=== PATIENT | male | born 1965 | race Caucasian/White ===

== ENCOUNTER 2018-09-15 08:47 | Emergency (ER) | payer MEDICAID, OTHER ==
[~2018-09-15] VITALS: Ht 170.2 cm; Wt 68.0 kg
[~2018-09-15 08:47] MED LIST: AFRIN NS; ASPI81TA52 PO; CEPH-571 PO; CYCL-1 PO; IBUP-1986 PO; NEOM10SO7 OT; PRED10TA PO
[2018-09-15 08:52] VITALS: BP 150/90
[2018-09-15] MEDS ORDERED: IBUP-1984 PO (11:00)
== END 2018-09-15 11:07 | disposition home or self-care (01) ==
LOC: ER 08:48
DX: S93.402A Sprain of unspecified ligament of left ankle, initial encounter (principal); I10 Essential (primary) hypertension; K21.9 Gastro-esophageal reflux disease without esophagitis; G89.29 Other chronic pain; F17.200 Nicotine dependence, unspecified, uncomplicated; F12.90 Cannabis use, unspecified, uncomplicated; Z59.0 Homelessness; Z88.5 Allergy status to narcotic agent; Z79.82 Long term (current) use of aspirin; Z79.2 Long term (current) use of antibiotics; Z79.899 Other long term (current) drug therapy; W13.8XXA Fall from, out of or through other building or structure, initial encounter; Y93.39 Activity, other involving climbing, rappelling and jumping off; Y92.89 Other specified places as the place of occurrence of the external cause; Y99.8 Other external cause status
CPT/HCPCS: 73610; 73630; 99284

== ENCOUNTER 2019-09-12 13:16 | Emergency (ER) | payer SELFPAY ==
[~2019-09-12] VITALS: Ht 167.6 cm; Wt 75.3 kg
[2019-09-12] MEDS ORDERED: ketorolac trometh. 30mg/ml inj. IM ONE (14:10)
[2019-09-12] MEDS ORDERED: CYCL-1 PO (14:48)
[2019-09-12] MEDS ORDERED: IBUP-1984 PO (14:48)
[2019-09-12 14:58] VITALS: BP 147/82
== END 2019-09-12 15:00 | disposition home or self-care (01) ==
LOC: ER 13:17
DX: G89.29 Other chronic pain (principal); M54.5 Low back pain; I10 Essential (primary) hypertension; K21.9 Gastro-esophageal reflux disease without esophagitis; F12.90 Cannabis use, unspecified, uncomplicated; Z87.442 Personal history of urinary calculi; Z59.0 Homelessness; Z88.5 Allergy status to narcotic agent; Z79.82 Long term (current) use of aspirin; Z79.2 Long term (current) use of antibiotics; Z79.899 Other long term (current) drug therapy
CPT/HCPCS: 96372; 99283; J1885

== ENCOUNTER 2020-06-12 09:09 | Emergency (ER) | payer MEDICAID, OTHER ==
[~2020-06-12] VITALS: Ht 170.2 cm; Wt 75.3 kg
[2020-06-12 09:20] VITALS: BP 149/89
[2020-06-12] MEDS ORDERED: LIDOcaine 5% patch TP STA (10:06)
[2020-06-12] MEDS ORDERED: ondansetron 4mg rapidly disintigrating tab PO ONE (10:10)
[2020-06-12] MEDS ORDERED: ketorolac trometh. 30mg/ml inj. IM ONE (10:10)
[2020-06-12] MEDS ORDERED: BACL-11 PO (10:10)
[2020-06-12] MEDS ORDERED: cyclobenzaprine 10mg tablet PO ONE (10:10)
[2020-06-12] MEDS: HYDROcodone/acetaminophen 5mg/325mg tablet PO ONE ×2 (10:29→10:30)
[2020-06-12 11:09] LABS: CLARITY,URINE CLEAR (Clear); COLOR,URINE YELLOW (Yellow); GLUCOSE, URINE NEGATIVE (Neg); KETONES,URINE NEGATIVE (Neg); LEUKOCYTE ESTERASE ,URINE NEGATIVE (Neg); NITRITES, URINE NEGATIVE (Neg); OCCULT BLOOD,URINE NEGATIVE (Neg); PROTEIN,URINE NEGATIVE (Neg); UA COLLECTION TYPE CLN CATCH MIDSTREAM; UROBILINOGEN,URINE 0.2 E.U/dL (0.2-1.0)
== END 2020-06-12 11:53 | disposition home or self-care (01) ==
LOC: ER 09:09
DX: S33.5XXA Sprain of ligaments of lumbar spine, initial encounter (principal); M54.16 Radiculopathy, lumbar region; G89.29 Other chronic pain; M62.830 Muscle spasm of back; I10 Essential (primary) hypertension; K21.9 Gastro-esophageal reflux disease without esophagitis; F12.90 Cannabis use, unspecified, uncomplicated; M25.552 Pain in left hip; M25.551 Pain in right hip; Z59.0 Homelessness; Z86.19 Personal history of other infectious and parasitic diseases; Z88.5 Allergy status to narcotic agent; Z79.82 Long term (current) use of aspirin; Z79.899 Other long term (current) drug therapy; X58.XXXA Exposure to other specified factors, initial encounter; Y93.89 Activity, other specified; Y92.89 Other specified places as the place of occurrence of the external cause; Y99.8 Other external cause status
CPT/HCPCS: 81003; 96372; 99284; J1885

== ENCOUNTER 2021-05-18 18:37 | Emergency (ER) | payer MEDICAID ==
[~2021-05-18] VITALS: Ht 167.6 cm; Wt 80.0 kg
[~2021-05-18 18:37] MED LIST changes: +BACL-11 PO
[2021-05-18 18:54] VITALS: BP 116/74
--- NOTE | 2021-05-18 19:25 | NUR ---
PT TO ROOM, ASSUMED CARE.
[2021-05-18] MEDS ORDERED: ketorolac tromethamine 15mg/ml inj. IM ONE (19:35)
[2021-05-18 20:11] LABS: BASOPHILS % (AUTO) 0.3 % (0-1); EOSINOPHILS # (AUTO) 0.1 X10'3 (0-0.9); HEMATOCRIT 42.6 % (42.0-52.0); HEMOGLOBIN 14.5 g/dl (14.0-17.9); LYMPHOCYTES # (AUTO) 1.9 X10'3 (1.1-4.8); LYMPHOCYTES % (AUTO) 19.7 % (21-51); MEAN CORPUSCULAR HEMOGLOBIN 31.5 PG (27.0-31.0); MEAN CORPUSCULAR VOLUME 92.8 FL (78-98); MEAN PLATELET VOLUME 8.7 FL (7.4-10.4); NEUTROPHILS # (AUTO) 6.8 X10'3 (1.8-7.7); PLATELET COUNT 180 X10'3 (140-440); RED BLOOD COUNT 4.59 X10'6 (4.70-6.10); RED CELL DISTRIBUTION WIDTH 13.1 % (11.5-14.5); WHITE BLOOD COUNT 9.9 X10'3 (4.5-11.0)
[2021-05-18 20:23] LABS: ALANINE AMINOTRANSFERASE 133 U/L (12-78); ALBUMIN 3.4 G/DL (3.4-5.0); ALBUMIN/GLOBULIN RATIO 0.8 (1.1-1.5); ALKALINE PHOSPHATASE 124 IU/L (46-116); ANION GAP 6 (8-16); ASPARTATE AMINO TRANSFERASE 53 U/L (10-37); BILIRUBIN,TOTAL 0.6 MG/DL (0.1-1.0); BLOOD UREA NITROGEN 17 MG/DL (7-18); BUN/CREATININE RATIO 15.2 (5.4-32.0); C-REACTIVE PROTEIN 2.33 MG/DL (0.0-0.5); CALCIUM 9.2 MG/DL (8.5-10.1); CHLORIDE 102 MMOL/L (99-107); CREATININE 1.12 MG/DL (0.60-1.10); GLUCOSE 120 MG/DL (70-104); POTASSIUM 3.9 MMOL/L (3.5-5.1); SODIUM 137 MMOL/L (135-145); TOTAL CARBON DIOXIDE 29.2 MMOL/L (24-32); TOTAL PROTEIN 7.9 G/DL (6.4-8.2); eGFR 68 ML/MIN
[2021-05-18] MEDS ORDERED: CEPH-585 PO (21:29)
== END 2021-05-18 21:36 | disposition home or self-care (01) ==
LOC: ER 18:37
DX: L03.116 Cellulitis of left lower limb (principal); I10 Essential (primary) hypertension; K21.9 Gastro-esophageal reflux disease without esophagitis; G89.29 Other chronic pain; Z87.442 Personal history of urinary calculi; F12.90 Cannabis use, unspecified, uncomplicated; Z59.0 Homelessness; Z86.19 Personal history of other infectious and parasitic diseases; Z88.5 Allergy status to narcotic agent; Z79.82 Long term (current) use of aspirin; Z79.899 Other long term (current) drug therapy
CPT/HCPCS: 36415; 80053; 85025; 85651; 86140; 96372; 99283; J1885

== ENCOUNTER 2021-08-04 20:20 | Emergency (ER) | payer MEDICAID ==
[~2021-08-04] VITALS: Ht 170.2 cm; Wt 79.5 kg
[2021-08-04 20:56] VITALS: BP 124/95
[2021-08-04] MEDS ORDERED: ALBU6.7H9 INH (21:35)
[2021-08-04] MEDS ORDERED: PRED20TA PO (21:35)
== END 2021-08-04 22:41 | disposition home or self-care (01) ==
LOC: ER 20:21
DX: U07.1 COVID-19 (principal); J06.9 Acute upper respiratory infection, unspecified; R06.2 Wheezing; R06.02 Shortness of breath; R50.9 Fever, unspecified; R05 Cough; R53.1 Weakness; I10 Essential (primary) hypertension; K21.9 Gastro-esophageal reflux disease without esophagitis; G89.29 Other chronic pain; F12.90 Cannabis use, unspecified, uncomplicated; Z86.19 Personal history of other infectious and parasitic diseases; Z87.442 Personal history of urinary calculi; Z59.0 Homelessness; Z88.5 Allergy status to narcotic agent; Z79.82 Long term (current) use of aspirin; Z79.2 Long term (current) use of antibiotics; Z79.899 Other long term (current) drug therapy
CPT/HCPCS: 36415; 71045; 99284; U0003; U0005

== ENCOUNTER 2021-09-04 19:24 | Emergency (ER) | payer MEDICAID ==
[~2021-09-04] VITALS: Ht 170.2 cm; Wt 78.6 kg
[~2021-09-04 19:24] MED LIST changes: +ALBU6.7H9 INH
[2021-09-04 19:37] VITALS: BP 174/94
== END 2021-09-04 21:45 | disposition home or self-care (01) ==
LOC: ER 19:25
DX: R05.9 Cough, unspecified (principal); J34.89 Other specified disorders of nose and nasal sinuses; I10 Essential (primary) hypertension; K21.9 Gastro-esophageal reflux disease without esophagitis; G89.29 Other chronic pain; F12.90 Cannabis use, unspecified, uncomplicated; Z86.19 Personal history of other infectious and parasitic diseases; Z87.442 Personal history of urinary calculi; Z59.00 Homelessness unspecified; Z88.5 Allergy status to narcotic agent; Z79.82 Long term (current) use of aspirin; Z79.2 Long term (current) use of antibiotics; Z79.899 Other long term (current) drug therapy
CPT/HCPCS: 71045; 99283

== ENCOUNTER 2021-09-24 21:22 | Emergency (ER) | payer MEDICAID ==
[~2021-09-24] VITALS: Ht 170.2 cm; Wt 78.0 kg
[~2021-09-24 21:22] MED LIST changes: +METH-360 PO
[2021-09-25] MEDS ORDERED: ketorolac trometh. 30mg/ml inj. IV ONE (00:15)
[2021-09-25] MEDS ORDERED: normal saline 1000ML IV soln IVB ONE (00:15)
[2021-09-25 00:27] LABS: BASOPHILS # (AUTO) 0.1 X10'3 (0-0.2); BASOPHILS % (AUTO) 1.2 % (0-1); EOSINOPHILS # (AUTO) 0.1 X10'3 (0-0.9); EOSINOPHILS % (AUTO) 2.6 % (0-6); HEMATOCRIT 41.8 % (42.0-52.0); HEMOGLOBIN 14.6 g/dl (14.0-17.9); LYMPHOCYTES # (AUTO) 2.2 X10'3 (1.1-4.8); LYMPHOCYTES % (AUTO) 40.9 % (21-51); MEAN CORPUSCULAR HEMOGLOBIN 31.7 PG (27.0-31.0); MEAN CORPUSCULAR HGB CONC 34.8 g/dL (33.0-36.5); MEAN CORPUSCULAR VOLUME 90.9 FL (78-98); MEAN PLATELET VOLUME 8.6 FL (7.4-10.4); MONOCYTES # (AUTO) 0.6 X10'3 (0-0.9); MONOCYTES % (AUTO) 11.9 % (2-12); NEUTROPHILS # (AUTO) 2.3 X10'3 (1.8-7.7); NEUTROPHILS % (AUTO) 43.4 % (42-75); PLATELET COUNT 207 X10'3 (140-440); RED CELL DISTRIBUTION WIDTH 13.3 % (11.5-14.5); WHITE BLOOD COUNT 5.4 X10'3 (4.5-11.0)
[2021-09-25 00:41] LABS: ALANINE AMINOTRANSFERASE 127 U/L (12-78); ALBUMIN 3.2 G/DL (3.4-5.0); ALBUMIN/GLOBULIN RATIO 0.7 (1.1-1.5); ALKALINE PHOSPHATASE 94 IU/L (46-116); ANION GAP 7 (8-16); ASPARTATE AMINO TRANSFERASE 53 U/L (10-37); BILIRUBIN,TOTAL 0.3 MG/DL (0.1-1.0); BLOOD UREA NITROGEN 14 MG/DL (7-18); BUN/CREATININE RATIO 14.9 (5.4-32.0); CALCIUM 9.2 MG/DL (8.5-10.1); CHLORIDE 109 MMOL/L (99-107); CREATININE 0.94 MG/DL (0.60-1.10); GLUCOSE 96 MG/DL (70-104); POTASSIUM 3.4 MMOL/L (3.5-5.1); SODIUM 145 MMOL/L (135-145); TOTAL CARBON DIOXIDE 29.1 MMOL/L (24-32); TOTAL PROTEIN 7.8 G/DL (6.4-8.2); eGFR 83 ML/MIN
[2021-09-25 00:42] LABS: ETHANOL < 0.010 GM/DL (0.0-0.010)
[2021-09-25 02:25] VITALS: BP 178/98
[2021-09-25] MEDS ORDERED: triamcinolone acetonide 40mg/ml inj IM ONE (03:05)
[2021-09-25] MEDS ORDERED: TRAM50TA2 PO (03:08)
[2021-09-25 03:15] LABS: CLARITY,URINE CLEAR (Clear); COLOR,URINE YELLOW (Yellow); GLUCOSE, URINE NEGATIVE (Neg); KETONES,URINE NEGATIVE (Neg); LEUKOCYTE ESTERASE ,URINE NEGATIVE (Neg); NITRITES, URINE NEGATIVE (Neg); OCCULT BLOOD,URINE NEGATIVE (Neg); PROTEIN,URINE NEGATIVE (Neg); UA COLLECTION TYPE URINAL; UROBILINOGEN,URINE 0.2 E.U/dL (0.2-1.0)
[2021-09-25 03:20] LABS: URINE AMPHETAMINE SCREEN POSITIVE (Neg); URINE BARBITUATE SCREEN NEGATIVE (Neg); URINE BENZODIAZEPINES SCREEN NEGATIVE (Neg); URINE CANNABINOID SCREEN NEGATIVE (Neg); URINE COCAINE SCREEN NEGATIVE (Neg); URINE METHADONE SCREEN NEGATIVE (Neg); URINE OPIATE SCREEN NEGATIVE (Neg); URINE PHENCYCLIDINE SCREEN NEGATIVE (Neg)
== END 2021-09-25 03:40 | disposition home or self-care (01) ==
LOC: ER 21:23
DX: M48.00 Spinal stenosis, site unspecified (principal); M54.50 Low back pain, unspecified; M79.605 Pain in left leg; G89.29 Other chronic pain; I10 Essential (primary) hypertension; K21.9 Gastro-esophageal reflux disease without esophagitis; F12.90 Cannabis use, unspecified, uncomplicated; Z86.19 Personal history of other infectious and parasitic diseases; Z87.442 Personal history of urinary calculi; Z59.00 Homelessness unspecified; Z88.5 Allergy status to narcotic agent; Z79.82 Long term (current) use of aspirin; Z79.2 Long term (current) use of antibiotics; Z79.899 Other long term (current) drug therapy
CPT/HCPCS: 36415; 72131; 80053; 80305; 80320; 81003; 85025; 96372; 96374; 99284; J1885; J3301; J7030

== ENCOUNTER 2021-11-05 08:44 | Inpatient (IN) | payer MEDICAID ==
[~2021-11-05] VITALS: Ht 167.6 cm; Wt 60.0 kg
[2021-11-05] MEDS ORDERED: proCHLORperazine 10 MG/2 ml inj IV ONE (08:55)
[2021-11-05] MEDS ORDERED: ketorolac trometh. 30mg/ml inj. IV ONE (08:55)
[2021-11-05] MEDS ORDERED: aspirin 81mg tab.chew PO ONE (08:55)
[2021-11-05 09:29] LABS: BASOPHILS # (AUTO) 0.1 X10'3 (0-0.2); BASOPHILS % (AUTO) 0.8 % (0-1); EOSINOPHILS # (AUTO) 0.1 X10'3 (0-0.9); EOSINOPHILS % (AUTO) 1.1 % (0-6); LYMPHOCYTES # (AUTO) 1.9 X10'3 (1.1-4.8); MEAN CORPUSCULAR HEMOGLOBIN 31.5 PG (27.0-31.0); MEAN CORPUSCULAR HGB CONC 34.1 g/dL (33.0-36.5); MEAN CORPUSCULAR VOLUME 92.3 FL (78-98); MEAN PLATELET VOLUME 8.9 FL (7.4-10.4); MONOCYTES # (AUTO) 0.7 X10'3 (0-0.9); MONOCYTES % (AUTO) 9.7 % (2-12); NEUTROPHILS # (AUTO) 4.1 X10'3 (1.8-7.7); NEUTROPHILS % (AUTO) 60.4 % (42-75); PLATELET COUNT 214 X10'3 (140-440); RED BLOOD COUNT 4.77 X10'6 (4.70-6.10); RED CELL DISTRIBUTION WIDTH 13.2 % (11.5-14.5); WHITE BLOOD COUNT 6.8 X10'3 (4.5-11.0)
[2021-11-05 09:47] LABS: ALANINE AMINOTRANSFERASE 216 U/L (12-78); ALBUMIN 3.1 G/DL (3.4-5.0); ALBUMIN/GLOBULIN RATIO 0.8 (1.1-1.5); ALKALINE PHOSPHATASE 111 IU/L (46-116); ANION GAP 9 (8-16); ASPARTATE AMINO TRANSFERASE 73 U/L (10-37); BILIRUBIN,TOTAL 0.2 MG/DL (0.1-1.0); BLOOD UREA NITROGEN 15 MG/DL (7-18); BUN/CREATININE RATIO 16.7 (5.4-32.0); CALCIUM 9.4 MG/DL (8.5-10.1); CHLORIDE 106 MMOL/L (99-107); GLUCOSE 132 MG/DL (70-104); SODIUM 140 MMOL/L (135-145); TOTAL CARBON DIOXIDE 24.7 MMOL/L (24-32); TOTAL PROTEIN 7.1 G/DL (6.4-8.2); eGFR 87 ML/MIN
[2021-11-05 09:55] LABS: MAGNESIUM 1.9 MG/DL (1.5-2.4)
[2021-11-05 09:58] LABS: POTASSIUM 4.1 MMOL/L (3.5-5.1)
[2021-11-05] MEDS ORDERED: magnesium hydroxide 30ml (MOM) UD suspension PO PRN (13:05)
[2021-11-05] MEDS ORDERED: potassium Cl 20 mEq SR tablet PO PRN ×2 (13:05)
[2021-11-05] MEDS ORDERED: normal saline 1000ml 1,000 ML IV SCH (13:05)
[2021-11-05] MEDS ORDERED: HYDROcodone/acetaminophen 10/325mg tab PO PRN (13:05)
[2021-11-05] MEDS ORDERED: potassium CL 10mEq/100ml bag 100 ML IV PRN (13:05)
[2021-11-05] MEDS ORDERED: diphenhydrAMINE 25mg capsule PO PRN (13:05)
[2021-11-05] MEDS ORDERED: magnesium 4gm in 100ml NS 100 ML IV PRN (13:05)
[2021-11-05] MEDS ORDERED: magnesium Cl slow-release 64mg tablet PO PRN (13:05)
[2021-11-05] MEDS ORDERED: mag hydrox/Alum hydrox/simeth 30ml oral suspension PO PRN (13:05)
[2021-11-05] MEDS ORDERED: magnesium 2GM in 50ml NS 50 ML IV PRN (13:05)
[2021-11-05] MEDS ORDERED: metoprolol tartrate 1mg/ml inj IV PRN (13:05)
[2021-11-05] MEDS ORDERED: regadenoson 0.4mg/5ml syringe IV ONE (13:05)
[2021-11-05] MEDS ORDERED: bisacodyl 10mg suppository rectal RC PRN (13:05)
[2021-11-05] MEDS ORDERED: ondansetron/PF 4mg/2ml inj IV PRN (13:05)
[2021-11-05] MEDS ORDERED: aminophylline 250mg/10ml inj. IV PRN (13:05)
[2021-11-05] MEDS ORDERED: morphine 2 MG/ML inj. syringe IV PRN ×2 (13:05)
[2021-11-05] MEDS ORDERED: nitroGLYCERIN 0.4mg SUBLingual tab SL PRN (13:05)
[2021-11-05] MEDS ORDERED: acetaminophen 650mg rectal suppository RC PRN (13:05)
[2021-11-05] MEDS ORDERED: HYDROcodone/acetaminophen 5mg/325mg tablet PO PRN (13:05)
[2021-11-05] MEDS ORDERED: acetaminophen 325mg tablet PO PRN ×2 (13:05)
[2021-11-05] MEDS ORDERED: iohexol 350MG/ML 100ml bottle IV ONE (13:34)
[2021-11-05] MEDS ORDERED: NO HOME MEDS PO (16:13)
[2021-11-05 17:57] VITALS: BP 159/84
[2021-11-05] MEDS ORDERED: heparin, porcine 5000 units/ml vial SQ SCH (20:00)
[2021-11-05] MEDS ORDERED: K and/or MAG REPLACEMENT MC SCH (20:00)
[2021-11-05] MEDS ORDERED: docusate sod 100mg capsule PO SCH (20:00)
== END 2021-11-05 20:00 | disposition left against medical advice (07) | DRG 198 ==
LOC: ER 08:44 → ED HOLD 13:09
PROVIDERS: ADMIT Family Medicine; ATTEND Family Medicine
PROC: B32T1ZZ Computerized Tomography (CT Scan) of Left Pulmonary Artery using Low Osmolar Contrast (ICD-10-PCS; principal; 2021-11-05)
PROC: B3201ZZ Computerized Tomography (CT Scan) of Thoracic Aorta using Low Osmolar Contrast (ICD-10-PCS; 2021-11-05)
PROC: B32S1ZZ Computerized Tomography (CT Scan) of Right Pulmonary Artery using Low Osmolar Contrast (ICD-10-PCS; 2021-11-05)
DX: R07.9 Chest pain, unspecified (principal); I25.10 Atherosclerotic heart disease of native coronary artery without angina pectoris; B19.20 Unspecified viral hepatitis C without hepatic coma; F12.90 Cannabis use, unspecified, uncomplicated; G89.29 Other chronic pain; Z20.822 Contact with and (suspected) exposure to COVID-19; K21.9 Gastro-esophageal reflux disease without esophagitis; Z53.29 Procedure and treatment not carried out because of patient's decision for other reasons; M54.9 Dorsalgia, unspecified; I10 Essential (primary) hypertension; I25.2 Old myocardial infarction; Z87.442 Personal history of urinary calculi; Z59.00 Homelessness unspecified; Z88.5 Allergy status to narcotic agent
CPT/HCPCS: 36415; 71045; 71275; 80053; 83036; 83735; 83880; 84484; 85025; 87635; 93005; C9803; G0378; J0780; J1885; J2785; J7030; Q9967

== ENCOUNTER 2022-06-17 07:50 | Day surgery (SDC) | payer MEDICAID ==
[2022-06-16 10:51] LABS: BASOPHILS % (AUTO) 0.5 % (0-1); EOSINOPHILS # (AUTO) 0.1 X10'3 (0-0.9); EOSINOPHILS % (AUTO) 1.8 % (0-6); HEMATOCRIT 38.6 % (42.0-52.0); HEMOGLOBIN 13.3 g/dl (14.0-17.9); LYMPHOCYTES # (AUTO) 1.7 X10'3 (1.1-4.8); LYMPHOCYTES % (AUTO) 25.5 % (21-51); MEAN CORPUSCULAR HGB CONC 34.5 g/dL (33.0-36.5); MEAN CORPUSCULAR VOLUME 89.8 FL (78-98); MEAN PLATELET VOLUME 9.1 FL (7.4-10.4); MONOCYTES # (AUTO) 0.6 X10'3 (0-0.9); MONOCYTES % (AUTO) 9.2 % (2-12); NEUTROPHILS # (AUTO) 4.1 X10'3 (1.8-7.7); PLATELET COUNT 198 X10'3 (140-440); RED BLOOD COUNT 4.29 X10'6 (4.70-6.10); RED CELL DISTRIBUTION WIDTH 13.1 % (11.5-14.5); WHITE BLOOD COUNT 6.5 X10'3 (4.5-11.0)
[2022-06-16 11:01] LABS: APTT 27 SECONDS (22-32)
[2022-06-16 11:02] LABS: ALANINE AMINOTRANSFERASE 50 U/L (12-78); ALBUMIN 3.2 G/DL (3.4-5.0); ALBUMIN/GLOBULIN RATIO 0.7 (1.1-1.5); ALKALINE PHOSPHATASE 106 IU/L (46-116); ANION GAP 8 (8-16); ASPARTATE AMINO TRANSFERASE 24 U/L (10-37); BILIRUBIN,TOTAL 0.3 MG/DL (0.1-1.0); BLOOD UREA NITROGEN 17 MG/DL (7-18); BUN/CREATININE RATIO 17.2 (5.4-32.0); CALCIUM 8.9 MG/DL (8.5-10.1); CHLORIDE 107 MMOL/L (99-107); CREATININE 0.99 MG/DL (0.60-1.10); GLUCOSE 102 MG/DL (70-104); POTASSIUM 3.5 MMOL/L (3.5-5.1); SODIUM 141 MMOL/L (135-145); TOTAL CARBON DIOXIDE 26.3 MMOL/L (24-32); TOTAL PROTEIN 7.7 G/DL (6.4-8.2); eGFR 78 ML/MIN
[~2022-06-17] VITALS: Ht 170.2 cm; Wt 71.9 kg
[2022-06-17] VITALS (14 sets, daily range): BP systolic 111–153; BP diastolic 57–105
[~2022-06-17 07:50] MED LIST changes: -AFRIN NS; -ALBU6.7H9 INH; -ASPI81TA52 PO; -BACL-11 PO; -CEPH-571 PO; -CYCL-1 PO; -IBUP-1986 PO; -METH-360 PO; -NEOM10SO7 OT; +NO HOME MEDS PO; -PRED10TA PO
[2022-06-17] MEDS ORDERED: Propranolol (08:08)
[2022-06-17] MEDS ORDERED: ASPI81TA52 PO (08:08)
[2022-06-17] MEDS ORDERED: GABA300C PO (08:08)
[2022-06-17] MEDS ORDERED: normal saline 1,000 ML IV SCH (08:50)
[2022-06-17] MEDS ORDERED: nitroGLYCERIN 0.4mg SUBLingual tab SL PRN (08:50)
[2022-06-17] MEDS ORDERED: LORazepam 0.5 MG tablet PO PRN (08:50)
[2022-06-17] MEDS ORDERED: diphenhydrAMINE 25mg capsule PO PRN (08:50)
[2022-06-17] MEDS ORDERED: fentaNYL/PF 50MCG/1 ML 2ML syringe ONE (08:55)
[2022-06-17] MEDS ORDERED: midazolam 1 mg/ML 2ml injection ONE (08:55)
[2022-06-17] MEDS ORDERED: LIDOcaine 1% 30ml preserv. free vial ONE (08:55)
[2022-06-17] MEDS ORDERED: iohexol 350MG/ML 100ml bottle IV ONE ×2 (08:55→09:41)
[2022-06-17] MEDS ORDERED: HYDROcodone/acetaminophen 10/325mg tab PO PRN (11:20)
[2022-06-17] MEDS ORDERED: ondansetron/PF 4mg/2ml inj IV PRN (11:20)
[2022-06-17] MEDS ORDERED: OXAZEpam 15mg capsule PO PRN (11:20)
[2022-06-17] MEDS ORDERED: HYDROcodone/acetaminophen 5mg/325mg tablet PO PRN (11:20)
[2022-06-17] MEDS ORDERED: proCHLORperazine 10 MG/2 ml inj IV PRN (11:20)
== END 2022-06-17 16:00 | disposition home or self-care (01) ==
LOC: SSTAY O 07:50
PROVIDERS: ATTEND Internal Medicine Cardiovascular Disease
DX: R94.39 Abnormal result of other cardiovascular function study (principal); I25.10 Atherosclerotic heart disease of native coronary artery without angina pectoris; E78.5 Hyperlipidemia, unspecified; F17.210 Nicotine dependence, cigarettes, uncomplicated; Z79.899 Other long term (current) drug therapy; Z79.01 Long term (current) use of anticoagulants; Z98.890 Other specified postprocedural states
CPT/HCPCS: 36415; 71046; 80053; 85025; 85610; 85730; 93005; 93458; 99152; C1760; C1769; J1644; J2250; J3010; J3490; J7030; Q0163; Q9967; 99153; A4620; A6258

== ENCOUNTER 2023-08-03 16:32 | Emergency (ER) | payer MEDICAID ==
[~2023-08-03] VITALS: Ht 170.2 cm; Wt 90.0 kg
[~2023-08-03 16:32] MED LIST changes: +ASPI81TA52 PO; +GABA300C PO; -NO HOME MEDS PO; +Propranolol
[2023-08-03 19:52] LABS: BASOPHILS # (AUTO) 0.1 X10'3 (0-0.2); BASOPHILS % (AUTO) 0.7 % (0-1); EOSINOPHILS # (AUTO) 0.1 X10'3 (0-0.9); EOSINOPHILS % (AUTO) 1.3 % (0-6); HEMATOCRIT 43.2 % (42.0-52.0); HEMOGLOBIN 14.7 g/dl (14.0-17.9); LYMPHOCYTES # (AUTO) 1.9 X10'3 (1.1-4.8); MEAN CORPUSCULAR HEMOGLOBIN 31.4 PG (27.0-31.0); MEAN CORPUSCULAR VOLUME 92.2 FL (78-98); MEAN PLATELET VOLUME 8.9 FL (7.4-10.4); MONOCYTES # (AUTO) 0.9 X10'3 (0-0.9); MONOCYTES % (AUTO) 9.3 % (2-12); NEUTROPHILS # (AUTO) 7.1 X10'3 (1.8-7.7); NEUTROPHILS % (AUTO) 69.7 % (42-75); PLATELET COUNT 241 X10'3 (140-440); RED BLOOD COUNT 4.68 X10'6 (4.70-6.10); WHITE BLOOD COUNT 10.2 X10'3 (4.5-11.0)
[2023-08-03] MEDS ORDERED: ondansetron/PF 4mg/2ml inj IV ONE (20:40)
[2023-08-03] MEDS ORDERED: morphine 2 MG/ML inj. syringe IV ONE (20:40)
[2023-08-03 20:47] LABS: ALANINE AMINOTRANSFERASE 64 U/L (12-78); ALBUMIN 3.2 G/DL (3.4-5.0); ALBUMIN/GLOBULIN RATIO 0.7 (1.1-1.5); ALKALINE PHOSPHATASE 95 IU/L (46-116); ANION GAP 9 (8-16); ASPARTATE AMINO TRANSFERASE 37 U/L (10-37); BILIRUBIN,TOTAL 0.3 MG/DL (0.1-1.0); BLOOD UREA NITROGEN 19 MG/DL (7-18); BUN/CREATININE RATIO 14.2 (10.0-20.0); CALCIUM 9.4 MG/DL (8.5-10.1); CHLORIDE 102 MMOL/L (99-107); CREATININE 1.34 MG/DL (0.60-1.10); GLUCOSE 102 MG/DL (70-104); LIPASE 108 U/L (73-393); SODIUM 139 MMOL/L (135-145); TOTAL CARBON DIOXIDE 27.6 MMOL/L (24-32); TOTAL PROTEIN 7.9 G/DL (6.4-8.2); eCRCL 56 ML/MIN; eGFR 55 ML/MIN
[2023-08-03 20:52] LABS: POTASSIUM 3.8 MMOL/L (3.5-5.1)
--- NOTE | 2023-08-03 21:19 | NUR ---
MD ASSESSING PATIENT AT BEDSIDE AT THIS TIME
[2023-08-03 21:21] LABS: BILIRUBIN,URINE NEGATIVE (Neg); CLARITY,URINE CLEAR (Clear); COLOR,URINE YELLOW (Yellow); GLUCOSE, URINE NEGATIVE (Neg); KETONES,URINE TRACE mg/dl (Neg); LEUKOCYTE ESTERASE ,URINE NEGATIVE (Neg); NITRITES, URINE NEGATIVE (Neg); OCCULT BLOOD,URINE MODERATE (Neg); PROTEIN,URINE NEGATIVE (Neg); UROBILINOGEN,URINE 0.2 E.U/dL (0.2-1.0)
[2023-08-03 21:23] LABS: UA COLLECTION TYPE CLN CATCH MIDSTREAM
[2023-08-03 21:28] LABS: SQUAMOUS EPITHELIAL CELL,UR FEW /LPF (FEW)
[2023-08-03 21:30] LABS: BACTERIA,URINE NONE SEEN /HPF (Neg); RBC,URINE 50-100 /HPF (0-2); WBC,URINE 0-4 /HPF (0-4)
[2023-08-03] MEDS ORDERED: ketorolac trometh. 30mg/ml inj. IV ONE (22:40)
[2023-08-03] MEDS ORDERED: tamsulosin 0.4mg capsule PO ONE (22:40)
[2023-08-03] MEDS ORDERED: acetaminophen 325mg tablet PO ONE (22:40)
[2023-08-03] MEDS ORDERED: morphine 4 MG/ML inj SYRINge IV ONE (22:40)
[2023-08-04] MEDS ORDERED: HYDROcodone/acetaminophen 10/325mg tab PO ONE (00:50)
[2023-08-04 05:02] VITALS: BP 162/92; PULSE 69; RESP 16; TEMP 98.6; O2SAT 96
[2023-08-04] MEDS ORDERED: HYDR-3972 PO (05:13)
[2023-08-04] MEDS ORDERED: ONDA8TAB13 PO (05:13)
[2023-08-04] MEDS ORDERED: FLO0.4C PO (05:13)
[2023-08-04] MEDS ORDERED: oxyCODONE IR 5mg (immed. release) tablet PO ONE (05:15)
--- NOTE | 2023-08-04 06:00 | NUR ---
iv dc'd pt being discharged dressing applied
== END 2023-08-04 06:01 | disposition home or self-care (01) ==
LOC: ER 16:32
DX: N20.0 Calculus of kidney (principal); I11.0 Hypertensive heart disease with heart failure; K21.9 Gastro-esophageal reflux disease without esophagitis; G89.29 Other chronic pain; M54.9 Dorsalgia, unspecified
CPT/HCPCS: 36415; 74176; 80053; 81001; 83690; 85025; 96374; 96375; 96376; 99285; J1885; J2270; J2405; J7030; 96372

== ENCOUNTER 2023-11-08 14:45 | Emergency (ER) | payer MEDICAID ==
[~2023-11-08] VITALS: Ht 172.7 cm; Wt 79.1 kg
[~2023-11-08 14:45] MED LIST changes: +ONDA8TAB13 PO
[2023-11-08 15:00] VITALS: BP 166/94; PULSE 85; RESP 16; TEMP 97.8; O2SAT 98
[2023-11-08 15:28] LABS: BASOPHILS % (AUTO) 0.4 % (0-1); EOSINOPHILS # (AUTO) 0.3 X10'3 (0-0.9); EOSINOPHILS % (AUTO) 3.1 % (0-6); HEMATOCRIT 45.7 % (42.0-52.0); HEMOGLOBIN 15.4 g/dl (14.0-17.9); LYMPHOCYTES # (AUTO) 2.9 X10'3 (1.1-4.8); LYMPHOCYTES % (AUTO) 32.3 % (21-51); MEAN CORPUSCULAR HEMOGLOBIN 30.4 PG (27.0-31.0); MEAN CORPUSCULAR HGB CONC 33.7 g/dL (33.0-36.5); MEAN CORPUSCULAR VOLUME 90.2 FL (78-98); MEAN PLATELET VOLUME 8.2 FL (7.4-10.4); MONOCYTES # (AUTO) 0.9 X10'3 (0-0.9); MONOCYTES % (AUTO) 10.1 % (2-12); NEUTROPHILS # (AUTO) 4.9 X10'3 (1.8-7.7); NEUTROPHILS % (AUTO) 54.1 % (42-75); PLATELET COUNT 273 X10'3 (140-440); RED BLOOD COUNT 5.07 X10'6 (4.70-6.10); RED CELL DISTRIBUTION WIDTH 13.4 % (11.5-14.5)
[2023-11-08 15:36] LABS: ALANINE AMINOTRANSFERASE 40 U/L (12-78); ALBUMIN 3.5 G/DL (3.4-5.0); ALBUMIN/GLOBULIN RATIO 0.6 (1.1-1.5); ALKALINE PHOSPHATASE 116 IU/L (46-116); ANION GAP 7 (8-16); ASPARTATE AMINO TRANSFERASE 26 U/L (10-37); BILIRUBIN,TOTAL 0.3 MG/DL (0.1-1.0); BLOOD UREA NITROGEN 13 MG/DL (7-18); BUN/CREATININE RATIO 13.3 (10.0-20.0); CALCIUM 9.5 MG/DL (8.5-10.1); CHLORIDE 103 MMOL/L (99-107); CREATININE 0.98 MG/DL (0.60-1.10); GLUCOSE 105 MG/DL (70-104); LIPASE 46 U/L (16-77); POTASSIUM 3.6 MMOL/L (3.5-5.1); SODIUM 140 MMOL/L (135-145); TOTAL CARBON DIOXIDE 30.4 MMOL/L (24-32); eCRCL 79 ML/MIN; eGFR 79 ML/MIN
[2023-11-08] MEDS ORDERED: FLO0.4C PO (23:41)
[2023-11-08] MEDS ORDERED: OXYC-145 PO (23:41)
[2023-11-08] MEDS ORDERED: CEPH250T PO (23:41)
[2023-11-08] MEDS ORDERED: KETO10TA2 PO (23:41)
== END 2023-11-08 19:00 | disposition left against medical advice (07) ==
LOC: ER 14:45
DX: M54.9 Dorsalgia, unspecified (principal)
CPT/HCPCS: 36415; 80053; 83690; 85025; 99283

== ENCOUNTER 2023-11-08 20:16 | Emergency (ER) | payer MEDICAID ==
[~2023-11-08] VITALS: Ht 170.2 cm; Wt 77.3 kg
[2023-11-08] MEDS ORDERED: methylPREDNISolone sod succ 125mg/2ml vial IV ONE (20:20)
[2023-11-08] MEDS ORDERED: LORazepam 2 mg/ml vial IV ONE (20:20)
[2023-11-08] MEDS ORDERED: famotidine/PF 10 mg/ml inj IV ONE (20:20)
[2023-11-08] MEDS ORDERED: ondansetron 4mg rapidly disintigrating tab PO ONE (22:25)
[2023-11-08] MEDS ORDERED: ketorolac tromethamine 15mg/ml inj. IM ONE (22:25)
[2023-11-08 23:07] LABS: BILIRUBIN,URINE NEGATIVE (Neg); CLARITY,URINE SLIGHTLY CLOUDY (Clear); GLUCOSE, URINE NEGATIVE (Neg); KETONES,URINE NEGATIVE (Neg); LEUKOCYTE ESTERASE ,URINE TRACE (Neg); NITRITES, URINE NEGATIVE (Neg); OCCULT BLOOD,URINE LARGE (Neg); PROTEIN,URINE 100 mg/dl (Neg)
[2023-11-08 23:12] LABS: COLOR,URINE DARK YELLOW (Yellow); UA COLLECTION TYPE VOIDED
[2023-11-08 23:13] LABS: MUCUS STRANDS MANY /LPF (Neg); SQUAMOUS EPITHELIAL CELL,UR FEW /LPF (FEW); TRANSITIONAL EPI CELLS,URINE FEW /HPF
[2023-11-08 23:15] LABS: BACTERIA,URINE 2+ /HPF (Neg); RBC,URINE TNTC /HPF (0-2); WBC,URINE 20-30 /HPF (0-4)
[2023-11-08 23:16] LABS: CAL OXALATE CRYSTALS 1+ /HPF (NEGATIVE)
[2023-11-08 23:20] LABS: WBC CLUMPS,URINE FEW /HPF (NEGATIVE)
[2023-11-08] MEDS ORDERED: normal saline 1000ml 1,000 ML IV ONE (23:20)
[2023-11-08] MEDS ORDERED: CefTRIAXone 2gm/D5W 50ml BAG 50 ML IV ONE (23:40)
[2023-11-08] MEDS ORDERED: CEPH250T PO (23:41)
[2023-11-08] MEDS ORDERED: KETO10TA2 PO (23:41)
[2023-11-08] MEDS ORDERED: FLO0.4C PO (23:41)
[2023-11-08] MEDS ORDERED: OXYC-145 PO (23:41)
[2023-11-09 01:13] VITALS: BP 136/78; PULSE 68; RESP 16; TEMP 98.6; O2SAT 96
== END 2023-11-09 01:16 | disposition home or self-care (01) ==
LOC: ER 20:16
DX: N20.0 Calculus of kidney (principal); N39.0 Urinary tract infection, site not specified; Z88.5 Allergy status to narcotic agent; Z79.899 Other long term (current) drug therapy; Z79.1 Long term (current) use of non-steroidal anti-inflammatories (NSAID); Z79.2 Long term (current) use of antibiotics
CPT/HCPCS: 74176; 81001; 87088; 96365; 96372; 99285; J0696; J1885; J7030

== ENCOUNTER 2024-02-16 06:02 | Emergency (ER) | payer MEDICAID ==
[~2024-02-16] VITALS: Ht 167.6 cm; Wt 75.0 kg
[~2024-02-16 06:02] MED LIST changes: +KETO10TA2 PO; +OXYC-145 PO
[2024-02-16 06:06] VITALS: BP 189/95; PULSE 92; O2SAT 99
[2024-02-16] MEDS ORDERED: NAPR-56 PO (07:57)
[2024-02-16] MEDS: HYDROcodone/acetaminophen 10/325mg tab PO ONE (07:59)
[2024-02-16 08:01] VITALS: RESP 16; TEMP 97.8
== END 2024-02-16 08:03 | disposition home or self-care (01) ==
LOC: ER 06:03
DX: M25.561 Pain in right knee (principal); I10 Essential (primary) hypertension; K21.9 Gastro-esophageal reflux disease without esophagitis; F12.90 Cannabis use, unspecified, uncomplicated; Z88.5 Allergy status to narcotic agent; Z79.82 Long term (current) use of aspirin; Z79.899 Other long term (current) drug therapy
CPT/HCPCS: 99283

== ENCOUNTER 2024-05-14 19:40 | Emergency (ER) | payer MEDICAID ==
[~2024-05-14] VITALS: Ht 167.6 cm; Wt 75.0 kg
[2024-05-14 19:45] VITALS: BP 134/84; PULSE 86; O2SAT 98
[2024-05-14] MEDS ORDERED: ketorolac tromethamine 15mg/ml inj. IV ONE (20:15)
[2024-05-14] MEDS ORDERED: METH-798 PO (20:21)
[2024-05-14] MEDS ORDERED: PRED20TA PO (20:21)
[2024-05-14 20:37] VITALS: RESP 16
[2024-05-14] MEDS: ketorolac tromethamine 15mg/ml inj. IM ONE (20:37)
[2024-05-14 20:54] VITALS: TEMP 98.7
== END 2024-05-14 20:56 | disposition home or self-care (01) ==
LOC: ER 19:40
DX: G89.29 Other chronic pain (principal); M54.50 Low back pain, unspecified; I10 Essential (primary) hypertension; I25.10 Atherosclerotic heart disease of native coronary artery without angina pectoris; K21.9 Gastro-esophageal reflux disease without esophagitis; F12.90 Cannabis use, unspecified, uncomplicated; Z88.5 Allergy status to narcotic agent; Z79.82 Long term (current) use of aspirin; Z79.899 Other long term (current) drug therapy
CPT/HCPCS: 96372; 99283; J1885

== ENCOUNTER 2024-07-11 15:48 | Emergency (ER) | payer MEDICAID ==
[~2024-07-11] VITALS: Ht 172.7 cm; Wt 75.0 kg
[~2024-07-11 15:48] MED LIST changes: +METH-798 PO; +ONDA-245 PO; -ONDA8TAB13 PO
[2024-07-11 18:45] VITALS: BP 139/99; PULSE 80; RESP 16; TEMP 98.7; O2SAT 99
== END 2024-07-11 19:02 | disposition home or self-care (01) ==
LOC: ER 15:48
DX: S30.0XXA Contusion of lower back and pelvis, initial encounter (principal); I25.10 Atherosclerotic heart disease of native coronary artery without angina pectoris; I10 Essential (primary) hypertension; K21.9 Gastro-esophageal reflux disease without esophagitis; G89.29 Other chronic pain; M54.9 Dorsalgia, unspecified; F12.90 Cannabis use, unspecified, uncomplicated; Z88.5 Allergy status to narcotic agent; Z79.82 Long term (current) use of aspirin; Z79.899 Other long term (current) drug therapy; X58.XXXA Exposure to other specified factors, initial encounter; Y93.89 Activity, other specified; Y92.89 Other specified places as the place of occurrence of the external cause; Y99.8 Other external cause status
CPT/HCPCS: 72100; 72220; 99284

== ENCOUNTER 2025-08-15 10:29 | Inpatient (IN) | payer MEDICAID ==
[~2025-08-15] VITALS: Ht 170.2 cm; Wt 80.0 kg
[~2025-08-15 10:29] MED LIST changes: +epiNEPHrine 0.1mg/ml 10ml syringe ONE
[2025-08-15] MEDS: dexamethasone sod phosphate 10mg/ml inj IV STA (10:48)
[2025-08-15] MEDS: famotidine/PF 10 mg/ml inj IV ONE (10:48)
--- NOTE | 2025-08-15 10:52 | Physician Documentation ---
History of Present Illness General Chief Complaint: See Chief Complaint Stated Complaint: ALLERGIC REACTION Time Seen by MD: 10:41 Primary Medical Doctor: JOHANNA History of Present Illness Initial Comments The patient is a 60-year-old male with a history of hepatitis-C, polysubstance abuse and hypertension who started taking sofosbuvir/velpatasvir yesterday for treatment of his hepatitis-C. He had one tablet last night and one tablet this morning. He subsequently had trouble swallowing and felt swelling in the back of his throat. EMS was summoned and they gave him 0.5 cc epinephrine 1:1000 intramuscularly along with Benadryl 50 mg IM. Medication Reconciliation Allergies: Coded Allergies: codeine (Verified Adverse Reaction, Intermediate, GI, 07/11/24) Scheduled Aspirin (Aspirin EC), 1 TAB PO DAILY, (Reported) Gabapentin (Neurontin), 1 CAP PO DAILY, (Reported) Ketorolac Tromethamine (Ketorolac Tromethamine), 1 TAB PO Q8H Methocarbamol (Methocarbamol), 1 TAB PO Q8H Ondansetron 8mg ODT (Ondansetron Odt), 1 TAB PO Q8H Scheduled PRN Oxycodone HCl/Acetaminophen (Percocet 5-325 mg Tablet), 1 TAB PO TID PRN PRN for kidney stone Miscellaneous Medications [Propranolol], (Reported) Past Medical History Past Medical History: Arrhythmia, Coronary Artery Disease, Hypertension, Myocardial Infarction, GERD, Hepatitis C, Kidney Stones, Chronic Back Pain Past Surgical History: orthopedic surgeries Smoking: Cigarettes, Greater than 1 pack/day Alcohol Use: None Drug Use: marijuana Lives In: Homeless Occupation: employed Review of Systems ROS Unable to obtain at this time due to acuity. Physical Exam Physical Exam Vital Signs: Temperature: 97.4, Source: Axillary, Heart Rate: 77, Respiratory Rate: 16, BP: 170/98, Pulse Oximetry: 97, Weight: 80.000 Oxygen Flow Rate: 0 Physical Exam Physical Exam Vitals and nursing note reviewed. Constitutional: General: Patient is awake, alert, oriented x 4 in no acute distress and well appearing. Speech is clear and lucid. Appearance: Normal appearance. Patient is not ill-appearing, toxic-appearing or diaphoretic. HENT: Head: Normocephalic and atraumatic. Mouth/Throat: Swelling of uvula, moderate and mild posterior pharyngeal swelling. Mouth: Mucous membranes are moist. Pharynx: Oropharynx is clear. Eyes: General: No scleral icterus. Extraocular Movements: Extraocular movements intact. Pupils: Pupils are equal, round, and reactive to light. Neck: Supple, no Kernig or Brudzinski sign. Cardiovascular: Rate and Rhythm: Normal rate and regular rhythm. Heart sounds: No murmur heard. Pulmonary: Effort: No respiratory distress. Breath sounds: No wheezing, rhonchi or rales. Abdominal: General: There is no distension. Palpations: There is no fluid wave, hepatomegaly or mass. Tenderness: There is no abdominal tenderness. There is no guarding. Musculoskeletal: General: No swelling or deformity. Skin: Coloration: Skin is not jaundiced. Findings: No erythema or rash. Neurological: Mental Status: Patient is alert. Progress Results/Orders Results/Orders Orders - SHARYN MONSON MD [facility] (08/15/25 13:35) Completed Orders - SHARYN MONSON MD Famotidine/Pf Iv Inj (Pepcid Iv Inj) (08/15/25 10:40) Dexamethasone Inj (Decadron 10mg/Ml Inj) (08/15/25 10:42) Cbc/Diff (08/15/25 13:34) Bmp Er (08/15/25 13:34) Pt Inr (08/15/25 13:34) Medications Received in ER Medications (Trade) Dose Ordered Sig/Kya Route PRN Reason Start Time Stop Time Status Last Admin Dose Admin (Pepcid IV inj) 40 mg ONCE ONCE IV 08/15/25 10:40 08/15/25 10:41 DC 08/15/25 10:48 40 MG (Decadron 10mg/ ml inj) 10 mg ONCE STAT IV 08/15/25 10:42 08/15/25 10:43 DC 08/15/25 10:48 10 MG Vital Signs 08/15/25 08/15/25 08/15/25 08/15/25 10:32 10:56 10:56 13:20 Temp 97.4 Pulse 77 83 87 Resp 16 15 17 20 B/P (MAP) 170/98 158/74 (102) 164/88 (113) Pulse Ox 97 100 100 O2 Flow Rate 0 2.0 2.0 Laboratory Tests Test 08/15/25 10:35 White Blood Count 8.4 Red Blood Count 4.54 L Hemoglobin 14.4 Hematocrit 42.4 Mean Corpuscular Volume 93.6 Mean Corpuscular Hemoglobin 31.7 H Mean Corpuscular Hemoglobin Concent 33.9 Red Cell Distribution Width 14.1 Platelet Count 221 Mean Platelet Volume 9.3 Neutrophils (%) (Auto) 53.0 Lymphocytes (%) (Auto) 34.7 Monocytes (%) (Auto) 9.3 Eosinophils (%) (Auto) 2.3 Basophils (%) (Auto) 0.7 Neutrophils # (Auto) 4.5 Lymphocytes # (Auto) 2.9 Monocytes # (Auto) 0.8 Eosinophils # (Auto) 0.2 Basophils # (Auto) 0.1 CBC Comment Prothrombin Time 9.9 INR International Normalized Ratio 1.0 Coagulation Comments Sodium Level 140 Potassium Level 3.7 Chloride Level 105 Carbon Dioxide Level 26.9 Anion Gap 8 Blood Urea Nitrogen 10 Creatinine 0.77 Estimated GFR/1.73 m2 > 90 BUN/Creatinine Ratio 13.0 Glucose Level 94 Calcium Level 8.8 Albumin 2.9 L Chemistry Comments Medical Decision Making Findings Upon arrival here the patient was able to talk and his oxygen saturations on room air were satisfactory. He did have mild to moderate swelling of his uvula and posterior pharynx. There were no wheezes on auscultation. I gave the patient 0.1 mg epinephrine intravenously as a push dose, famotidine 40 mg IV and Decadron 10 mg IV. I positioned the glide scope in the room next to the patient, as well. 1:33 p.m.: Patient has remained stable here for a little more than 3 hours. I will get him admitted for continued treatment and observation. He has mild swelling of the uvula at this time. No wheezing. Departure Disposition: ADMITTED INPATIENT Admitted to Inpatient Unit: to hospitalist Admission Level of Care: PCU with Tele Impression: Primary Impression: Allergic reaction Condition: Stable Referrals: NO PRIMARY CARE PROVIDER (PCP) Critical Care Note Critical Care Note Due to the high probability of respiratory/airway failure required my full attention for about 35 minutes while the patient was critical. I provided critical care services which included medication orders, frequent re- evaluations, response to treatment, renewing test results, and discussing case with various consultants. Unless specifically stated all procedures, tests, and medications were performed/interpreted under the direct supervision of the emergency department physician. Signature Scribe Signature: . Attestation: . SHARYN MONSON MD Aug 15, 2025 10:52
[2025-08-15 13:45] LABS: MEAN PLATELET VOLUME 9.3 FL (7.4-10.4); RED CELL DISTRIBUTION WIDTH 14.1 % (11.5-14.5)
[2025-08-15 13:51] LABS: INR 1.0 INR
[2025-08-15 13:55] LABS: CREATININE 0.77 MG/DL (0.60-1.10); TOTAL CARBON DIOXIDE 26.9 MMOL/L (24-32); eCRCL 95 ML/MIN; eGFR > 90 ML/MIN
[2025-08-15] MEDS ORDERED: ondansetron/PF 4mg/2ml inj IV PRN (14:15)
[2025-08-15] MEDS ORDERED: magnesium sulf-water 2g/50mL 50 ML IV PRN (14:15)
[2025-08-15] MEDS ORDERED: HYDROcodone/acetaminophen 5mg/325mg tablet PO PRN (14:15)
[2025-08-15] MEDS ORDERED: potassium Cl 20 mEq SR tablet PO PRN ×2 (14:15)
[2025-08-15] MEDS ORDERED: ondansetron 4mg rapidly disintigrating tab PO PRN (14:15)
[2025-08-15] MEDS ORDERED: magnesium hydroxide 30ml (MOM) UD suspension PO PRN (14:15)
[2025-08-15] MEDS ORDERED: HYDROcodone/acetaminophen 10/325mg tab PO PRN (14:15)
[2025-08-15] MEDS ORDERED: magnesium sulf-water 4G/100mL 100 ML IV PRN (14:15)
[2025-08-15] MEDS ORDERED: mag hydrox/Alum hydrox/simeth 30ml oral suspension PO PRN (14:15)
[2025-08-15] MEDS ORDERED: potassium Cl 40MEQ/1/2NS 520ml 520 ML IV PRN (14:15)
--- NOTE | 2025-08-15 14:29 | HISTORY AND PHYSICAL ---
History & Physical Providers to CC ~ History of Present Illness Reason for Admit\Complaint: Anaphylaxis History of Present Illness Naren Hansen is a 60-year-old male with past medical history of hepatitis-C, polysubstance abuse including methamphetamine, hypertension who was brought to the ED via EMS with chief complaint of acute onset dysphagia and sensation of swelling in the back of his throat and difficulty breathing x 1 day. Patient states he started on sofosbuvir/velpatasvir yesterday. Patient denies prior AR/CAD, CVA, cardiac arrhythmia, DVT/PE, or GIB. Patient currently denies chest pain, palpitations, shortness of breath, abdominal pain, n/v/d, fever, chills, dysuria. EMS administered 0.5 cc of epinephrine and Benadryl upon arrival. Patient is to be admitted for further workups and treatment. Allergies: Coded Allergies: codeine (Verified Adverse Reaction, Intermediate, GI, 07/11/24) Home Medications Home Medications Active Methocarbamol 750 Mg Tablet 1 Tab PO Q8H Percocet 5-325 mg Tablet (Oxycodone HCl/Acetaminophen) 5 Mg-325 Mg Tablet 1 Tab PO TID PRN PRN 5 Days Ketorolac Tromethamine 10 Mg Tablet 1 Tab PO Q8H 5 Days Ondansetron Odt (Ondansetron HCl) 8 Mg Tab.rapdis 1 Tab PO Q8H 2 Days Reported Aspirin EC (Aspirin) 81 Mg Tablet.dr 1 Tab PO DAILY [Propranolol] Neurontin (Gabapentin) 300 Mg Capsule 1 Cap PO DAILY Past Medical History Past Medical History Methamphetamine abuse Hepatitis-C Arthritis of the right hip Chronic lower back pain Past Surgical History Surgical History Comment Denies Past Social History Social History Comment Alcohol: Denies Tobacco: Cigarette, daily Illicit drug use: Methamphetamine Living situation: Lives at home alone ROS ROS Other than positives in HPI, all 14 review of systems are negative Exam Vitals: Vital Signs Date Time Temp Pulse Resp B/P (MAP) Pulse Ox O2 Delivery O2 Flow Rate FiO2 08/15/25 13:20 87 20 164/88 (113) 100 2.0 08/15/25 10:32 97.4 General: Generalized weakness, awake, alert, oriented, drowsy, NAD HEENT: Normocephalic, PERRLA Neck: Supple, trachea midline, no JVD Chest: Clear to auscultation bilaterally Cardiovascular: RRR, S1&S2 Abdomen: Soft and nontender Extremities: No cyanosis/clubbing/or edema Central Nervous System: CN II-XII intact, no focal deficits Musculoskeletal: No paraspinal muscle tenderness, no muscle spasm Skin: Warm and intact Diagnostic Data Last Recorded Lab Results: 08/15/25 1035 08/15/25 1035 Diagnostic Data: Laboratory Tests Test 08/15/25 10:35 Prothrombin Time 9.9 SECONDS (9.0-12.0) INR International Normalized Ratio 1.0 INR Coagulation Comments Counseling Services Smoking & Tobacco Cessation: > 10 Minutes Additional Plan 60yo male with pmh of hepatitis C on antiviral and methamphetamine abuse comes in with dysphagia, difficulty breathing x 1 day. Assessment & Plan Anaphylaxis Dysphagia Hepatitis-C, on antiviral Hypertension Methamphetamine abuse Nicotine dependence Malnutrition, moderate -start epinephrine prn, adjunct therapy with steroid and Benadryl, prn hydralazine, nicotine patch, seizure precaution -follow BSS, hepatitis panel, pending med rec DVT/VTE Prophylaxis: heparin Code Status: Full Code I spent a total of 16 minutes on smoking cessation education. I provided extensive counseling regarding smoking cessation. I spent a total of 35 minutes discussing Advanced Care Planning measures with the patient. Advance care planning: Discussed with patient the importance of advance care planning in case of emergent situation. We discussed various resuscitative measures/ ACP with the patient at the time of admission. Patient voiced understanding and patient has decided on a full code status. Date of Service: Aug 15, 2025 Billing Provider: MARIELA ANAYA Common Visit Codes: 39446-TCEOAJE INP/OBS CARE (HIGH) Secondary Visit Codes: 20715-FQCBH CHNG SMOKING >10MIN, 44864-[id number] CARE PLAN 30 MINUTES MARIELA ANAYA Aug 15, 2025 14:29
[2025-08-15] MEDS ORDERED: hydrALAZINE 20mg/ml inj. IV PRN (14:50)
[2025-08-15] MEDS: nicotine 14mg patch - 24hr TD ONE (15:15)
[2025-08-15] MEDS: normal saline 1000ml 1,000 ML IV SCH (16:26)
[2025-08-15 17:35] LABS: URINE AMPHETAMINE SCREEN POSITIVE (Neg); URINE BARBITUATE SCREEN NEGATIVE (Neg); URINE BENZODIAZEPINES SCREEN NEGATIVE (Neg); URINE CANNABINOID SCREEN NEGATIVE (Neg); URINE COCAINE SCREEN NEGATIVE (Neg); URINE METHADONE SCREEN NEGATIVE (Neg); URINE OPIATE SCREEN NEGATIVE (Neg); URINE PHENCYCLIDINE SCREEN NEGATIVE (Neg)
[2025-08-15 20:00] VITALS: BP 159/87; PULSE 81; RESP 14; TEMP 98; O2SAT 100
[2025-08-15] MEDS: K and/or MAG REPLACEMENT MC SCH (20:00)
[2025-08-15] MEDS: docusate sod 100mg capsule PO SCH (20:00)
[2025-08-15] MEDS: heparin, porcine 5000 units/ml vial SQ SCH (21:53)
[2025-08-15 22:00] VITALS: BP 159/87; PULSE 81; RESP 14; TEMP 98; O2SAT 100
[2025-08-16 05:40] LABS: MEAN PLATELET VOLUME 8.8 FL (7.4-10.4); RED CELL DISTRIBUTION WIDTH 13.6 % (11.5-14.5)
[2025-08-16 05:51] LABS: CREATININE 0.74 MG/DL (0.60-1.10); TOTAL CARBON DIOXIDE 27.6 MMOL/L (24-32); eCRCL 99 ML/MIN; eGFR > 90 ML/MIN
[2025-08-16 06:00] VITALS: BP 154/85; PULSE 89; RESP 18; TEMP 97.9; O2SAT 95
[2025-08-16] MEDS: nicotine 14mg patch - 24hr TD SCH (08:00)
[2025-08-16] MEDS ORDERED: LOSA50TA64 PO (09:42)
[2025-08-16] MEDS ORDERED: DIPH-423 PO (09:43)
[2025-08-16] MEDS ORDERED: PRED10TA23 PO (09:44)
[2025-08-16] MEDS ORDERED: EPIN0.154 IM (09:47)
[2025-08-16 10:00] VITALS: BP 133/69; PULSE 77; RESP 15; TEMP 98.6; O2SAT 100
--- NOTE | 2025-08-16 10:14 | DISCHARGE SUMMARY ---
Discharge Summary Providers to CC ~ Discharge Summary Admission Diagnosis: Anaphylaxis Hospital Course DATE OF ADMISSION: 08/15/25 DATE OF DISCHARGE: 08/16/25 Discharge Diagnosis\Comment: Anaphylaxis Dysphagia Hepatitis-C, on antiviral Hypertension Methamphetamine abuse Nicotine dependence Malnutrition, moderate Operations\Procedures: None Consultants: None Complications: None Condition on DC: Stable New Medications: Diphenhydramine Hcl (Benadryl) 25 Mg Capsule 50 MG PO DAILY PRN for allergies for 10 Days, #10 CAP Epinephrine (Epipen Jr 2-Edmundo) 0.15 Mg/0.3 Ml Auto.injct 1 SYR IM ONCE PRN for anaphylaxis for 1 Day, #0.6 ML 0 Refills Inject 0.3ml intramuscularly as needed for anaphylaxis, may repeat 5 minutes after Prednisone (Prednisone) 10 Mg Tablet 1 TAB PO DAILY for 2 Days, #3 TAB Take 2 tablets by mouth x 1 day, then take 1 tablet by mouth x 1 day. Losartan Potassium (Losartan Potassium) 50 Mg Tablet 50 MG PO DAILY for 90 Days, #90 TAB Continued Medications: Aspirin (Aspirin EC) 81 Mg Tablet.dr 1 TAB PO DAILY, TAB Gabapentin (Neurontin) 300 Mg Capsule 1500 MG PO HS, CAP Discharge Summary: History of Present Illness Naren Hansen is a 60-year-old male with past medical history of hepatitis-C, meliton ysubstance abuse including methamphetamine, hypertension who was brought to the ED via EMS with chief complaint of acute onset dysphagia and sensation of swelling in the back of his throat and difficulty breathing x 1 day. Patient states he started on sofosbuvir/velpatasvir yesterday. Patient denies prior DC/CAD, CVA, cardiac arrhythmia, DVT/PE, or GIB. Patient currently denies chest pain, palpitations, shortness of breath, abdominal pain, n/v/d, fever, chills, dysuria. EMS administered epinephrine and Benadryl upon arrival at the scene. Patient is to be admitted for further workups, monitoring, and treatment. Hospital Course Diagnostic findings were unremarkable other than urine drug toxicology revealing positive amphetamines. Patient was treated with adjunct therapy with steroid and diphenhydramine. Patient did not experience further complications throughout the entire hospital stay and remained clinically and hemodynamically stable. Vss, labs unremarkable. Patient is on room air and passed swallow study and tolerating regular diet well. Patient did not experience anaphylactic reaction during the entire hospital stay and recovered earlier than expected. Patient expresses willingness to be discharged. Patient was seen and examined on the day of discharge. All labs, diagnostic workups, discharge plan discussed with patient in details during visit before discharge. All questions and concerns answered to the best of my professional knowledge. Patient is to be discharged to home to self and to follow up with PCP within 2 weeks. 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
[2025-08-17 11:31] LABS: HBSAG SCREEN Negative (Negative); HEP A AB, IGM Negative (Negative); HEP B CORE AB, IGM Negative (Negative); HEPATITIS C VIRUS ANTIBODY Reactive (Non Reactive)
== END 2025-08-16 11:10 | disposition home or self-care (01) | DRG 811 ==
LOC: ER 10:30 → ED HOLD 14:48 → ORTHO 4S 19:55
PROVIDERS: ADMIT Nurse Practitioner Family; ATTEND Nurse Practitioner Family
DX: T78.2XXA Anaphylactic shock, unspecified, initial encounter (principal); E44.0 Moderate protein-calorie malnutrition; I25.10 Atherosclerotic heart disease of native coronary artery without angina pectoris; F17.210 Nicotine dependence, cigarettes, uncomplicated; B19.20 Unspecified viral hepatitis C without hepatic coma; I10 Essential (primary) hypertension; K21.9 Gastro-esophageal reflux disease without esophagitis; F19.10 Other psychoactive substance abuse, uncomplicated; Z68.27 Body mass index [BMI] 27.0-27.9, adult; Y92.89 Other specified places as the place of occurrence of the external cause
CPT/HCPCS: 36415; 80048; 80053; 80305; 83735; 85025; 85610; 86705; 86709; 86803; 87081; 87340; 87522; 96361; 96372; 96374; 96375; 99285; A4620; G0378; J0169; J1100; J1644; J3490; J7030; J7512

== ENCOUNTER 2025-09-23 21:30 | Emergency (ER) | payer MEDICAID ==
[~2025-09-23 21:30] MED LIST changes: +DIPH-423 PO; +EPIN0.154 IM; -KETO10TA2 PO; +LOSA50TA64 PO; -METH-798 PO; -ONDA-245 PO; -OXYC-145 PO; -Propranolol; -epiNEPHrine 0.1mg/ml 10ml syringe ONE
--- NOTE | 2025-09-23 22:47 | RADIOLOGY REPORT ---
CLINICAL INDICATION: KNEE PAIN TECHNIQUE: 3 views DI KNEE, COMP 4 VW MIN Comparison: None FINDINGS: No acute fracture or joint malalignment. Diffuse osteopenia. Mild osteoarthrosis. No obvious joint effusion or soft tissue swelling. Vascular calcifications. IMPRESSION: 1. No acute osseous finding of the right knee.
--- NOTE | 2025-09-23 22:52 | RADIOLOGY REPORT ---
CLINICAL INDICATION: HIP PAIN TECHNIQUE: 4 views DI HIP UNILATERAL 2 VIEWS Comparison: CT abdomen/pelvis 11/08/2023 FINDINGS: No acute fracture or dislocation. Severe right hip osteoarthrosis, progressive from 2022, with advanced osseous remodeling and deposition with superior migration. Mild left hip osteoarthrosis. Degenerative change in curvature of the lumbar spine. Unremarkable pelvic contents. IMPRESSION: 1. No acute osseous finding of the pelvis or right hip.
[2025-09-23] MEDS: ketorolac trometh 30MG/ML vial 30 MG/ML VIAL IM ONE (23:56)
--- NOTE | 2025-09-23 23:59 | Physician Documentation ---
History of Present Illness ~ Chief Complaint: Hip pain Stated Complaint: LOWER BACK/HIP PAIN Time Seen by MD: 23:00 Primary Medical Doctor: JOHANNA Tetanus within 5 Years?: Yes Medication Reconciliation Allergies: Coded Allergies: codeine (Verified Adverse Reaction, Intermediate, GI, 09/23/25) Scheduled Aspirin (Aspirin EC), 1 TAB PO DAILY, (Reported) Gabapentin (Neurontin), 1,500 MG PO HS, (Reported) Losartan Potassium (Losartan Potassium), 50 MG PO DAILY Scheduled PRN Diphenhydramine Hcl (Benadryl), 50 MG PO DAILY PRN for allergies Epinephrine (Epipen Jr 2-Edmundo), 1 SYR IM ONCE PRN for anaphylaxis Past Medical History Past Medical History: Arrhythmia, Coronary Artery Disease, Hypertension, Myocardial Infarction, GERD, Hepatitis C, Kidney Stones, Chronic Back Pain Past Surgical History: orthopedic surgeries Smoking Status: Current every day smoker Alcohol Use: None Drug Use: marijuana Lives In: Homeless Occupation: employed Review of Systems ROS As stated above in the HPI, otherwise all systems are reviewed and negative. Physical Exam Vital Signs: Temperature: 96.3, Source: Temporal, Heart Rate: 86, Respiratory Rate: 15, BP: 150/88, Pulse Oximetry: 97 Physical Exam VITALS: Reviewed and as above. GENERAL: Alert, no apparent distress. HEENT: Normocephalic, atraumatic, PERRL, EOMI, dry mucosa, no erythema RESPIRATORY: Lungs clear, normal breath sounds, no respiratory distress. CHEST: No accessory muscle use, no retractions CV: Regular rate, rhythm, no edema, no murmur, No: JVD GI: Soft, non-tender, bowels sounds present, no rebound, guarding, or rigidity BACK: No CVA tenderness, or swelling MUSCULOSKELETAL No deformities, no edema, pain and tenderness to the right knee right hip right leg noted during examination, reduced range of motion noted during examination. 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 He denied head trauma, loss of consciousness, or other acute symptoms. On evaluation, he remained hemodynamically stable and neurologically intact. All radiologic imaging, including plain radiographs of the affected regions, was negative for fractures, dislocations, or any acute abnormalities at this time. No evidence of occult injury was identified on initial assessment. The patient received a Toradol injection in the emergency department with good improvement in pain. He was ambulatory at discharge and able to perform activities of daily living. Per [employer] [place] [employer] and [employer] [place] [employer] guidelines, a comprehensive fall risk and functional assessment was performed, and no immediate safety concerns were identified for discharge. Discharge instructions include: Continue oral NSAIDs or acetaminophen as tolerated for pain control, with attention to comorbidities and risk factors. Follow up with primary care provider within 10 days if pain persists or worsens, for consideration of further imaging or diagnostics. Return to the emergency department for any increase in pain, inability to ambulate, new neurological symptoms, or if symptoms do not improve in an appropriate timeframe. Encourage gradual mobilization and consider physical therapy referral if functional deficits persist. All findings, test results, and follow-up recommendations were communicated to the patient and family at discharge, in accordance with geriatric emergency department best practices. Differential Dx:Considerations: Include: Closed head injury, Cardiac injury, Fracture(s), Intraabdominal injury, Pneumothorax, Cerebral contusion, Pulmonary contusion, Spine injury, Tracheal injury, Urological injury, Vascular injury, Abrasion(s), Contusion(s), Foreign body(s), Hematoma(s), Laceration(s), Encephalopathy, Other Departure Disposition: 01 HOME / SELF CARE / HOMELESS Impression: Primary Impression: Hip pain Additional Impression: Knee pain Condition: Stable Discharge Instructions: Musculoskeletal Pain Additional Instructions: You were seen in the emergency department for pain in your left hip, knee, and leg after a fall three days ago. All imaging tests (X-rays) showed no fractures, dislocations, or other injuries at this time. You received a Toradol (ketorolac) injection, which helped your pain. What to expect: Most people with muscle or joint pain after a fall improve over several days to weeks. It is important to stay as active as you can. Gentle movement and walking are encouraged. Avoid bed rest unless absolutely necessary. You may use [id number] pain medicines like acetaminophen (Tylenol) or NSAIDs (such as ibuprofen or naproxen) if you do not have kidney, stomach, or heart problems. Take these only as directed and stop if you have any side effects. Applying ice packs for 15-20 minutes at a time may help with pain and swelling. When to follow up: If your pain does not improve within 10 days, please make an appointment with your primary care provider. They may recommend further tests or imaging if needed. If you have trouble walking, new weakness, numbness, or your pain gets much worse, return to the emergency department right away. Safety tips: Use a cane or walker if you feel unsteady. Remove tripping hazards at home (loose rugs, clutter). Wear supportive shoes. Other instructions: Resume normal activities as you are able, but avoid anything that causes severe pain. If you take blood thinners, have stomach ulcers, or kidney problems, talk to your doctor before using NSAIDs. If you have questions or concerns, contact your doctor or return to the emergency department. Summary: Your tests today did not show any broken bones or serious injuries. Most people recover with rest, gentle activity, and simple pain medicines. Watch for any new or worsening symptoms and follow up as directed. Please follow up with her primary care provider. Return to the emergency department if you have any worsening or recurrent symptoms or any additional concerning symptoms that we discussed here today i.e. significantly increased pain swelling redness warmth over the joint fever chills nausea vomiting diarrhea or any other symptoms we discussed here today. Referrals: NO PRIMARY CARE PROVIDER (PCP) Education Educated: Patient Educated regarding: diagnosis, treatment, need for follow up Signature Scribe Signature: A Attestation: Scribed for Anna Finn by FRANKLIN Dewey . 09/23/25 23:59 ANNA FINN Sep 23, 2025 23:59
[2025-09-24 00:05] VITALS: BP 145/82; PULSE 82; RESP 16; TEMP 98.6; O2SAT 99
== END 2025-09-24 00:06 | disposition home or self-care (01) ==
LOC: ER 21:31
DX: M25.552 Pain in left hip (principal); M25.562 Pain in left knee; I10 Essential (primary) hypertension; F12.90 Cannabis use, unspecified, uncomplicated; F17.200 Nicotine dependence, unspecified, uncomplicated; I25.10 Atherosclerotic heart disease of native coronary artery without angina pectoris; I25.2 Old myocardial infarction; Z88.5 Allergy status to narcotic agent; Z79.82 Long term (current) use of aspirin
CPT/HCPCS: 73502; 73564; 96372; 99284; J1885

== ENCOUNTER 2025-10-30 13:46 | Emergency (ER) | payer MEDICAID ==
[~2025-10-30] VITALS: Ht 170.2 cm; Wt 75.0 kg
--- NOTE | 2025-10-30 14:27 | Physician Documentation ---
History of Present Illness ~ Chief Complaint: Foot pain Stated Complaint: FOOT SWELLING Time Seen by MD: 14:10 Primary Medical Doctor: JOHANNA VO This patient with a history of hypertension polysubstance abuse in the hepatitis-C presents with bilateral swelling to both of his feet patient states he has a history of neuropathy. Presents with reddened left lower extremity. P atient has a history of ND denies any shortness the breath or chest pain denies any history of diabetes Tetanus witin 5 years: Yes Medication Reconciliation Allergies: Coded Allergies: codeine (Verified Adverse Reaction, Intermediate, GI, 09/23/25) Scheduled Aspirin (Aspirin EC), 1 TAB PO DAILY, (Reported) Gabapentin (Neurontin), 1,500 MG PO HS, (Reported) Losartan Potassium (Losartan Potassium), 50 MG PO DAILY Scheduled PRN Diphenhydramine Hcl (Benadryl), 50 MG PO DAILY PRN for allergies Epinephrine (Epipen Jr 2-Edmundo), 1 SYR IM ONCE PRN for anaphylaxis Past Medical History Past Medical History: Arrhythmia, Coronary Artery Disease, Hypertension, Myocardial Infarction, GERD, Hepatitis C, Kidney Stones, Chronic Back Pain Past Surgical History: orthopedic surgeries Alcohol Use: None Drug Use: marijuana Lives In: Homeless Occupation: employed Review of Systems All Other Systems at this time: Reviewed and Negative ROS Scribed for Hilda Delcid Kitman by Hilda Delcid - RIPRAP WORKER . 10/30/25 14:26 Physical Exam Vital Signs: Temperature: 98.1, Source: Oral, Heart Rate: 84, Respiratory Rate: 16, BP: 167/81, Pulse Oximetry: 95, Weight: 75.000 Oxygen Flow Rate: 0 Physical Exam General: Alert, no apparent distress. Extremities: He will swelling in the left lower extremity the distal aspect. Distal aspect of the foot notable for erythema in his warm to touch compared to the opposing extremity, no evidence of ulceration Neurologic: Oriented x4. Psychiatric: Normal mood and affect. Skin: Normal color, warm and dry. No edema, no ecchymosis. Progress Results/Orders Results/Orders Orders - HILDA DELCID RIPRAP WORKER Culture Blood (10/30/25 14:20) Urinalysis, Cult If Indicated (10/30/25 14:20) Monitor (10/30/25 14:20) Saline Lock (10/30/25 14:20) Vl Venous (10/30/25 ) Vl Arterial (10/30/25 ) Completed Orders - HILDA DELCID RIPRAP WORKER Cbc/Diff (10/30/25 14:20) Procalcitonin (10/30/25 14:20) BMP (10/30/25 14:20) Lacticsepsis (10/30/25 14:20) Vl Venous (10/30/25 ) Vl Arterial (10/30/25 ) Ampicill/Sulbac 1.5gm/Ns 100ml (Unasyn 1 (10/30/25 15:45) Vital Signs 10/30/25 10/30/25 10/30/25 13:52 15:07 15:16 Temp 98.1 98.1 Pulse 84 79 Resp 16 18 B/P (MAP) 167/81 176/103 (127) Pulse Ox 95 96 O2 Flow Rate 0 0 Laboratory Tests Test 10/30/25 14:30 White Blood Count 6.8 Red Blood Count 4.40 L Hemoglobin 13.9 L Hematocrit 40.1 L Mean Corpuscular Volume 91.0 Mean Corpuscular Hemoglobin 31.5 H Mean Corpuscular Hemoglobin Concent 34.6 Red Cell Distribution Width 12.9 Platelet Count 202 Mean Platelet Volume 8.5 Neutrophils (%) (Auto) 58.7 Lymphocytes (%) (Auto) 29.4 Monocytes (%) (Auto) 9.3 Eosinophils (%) (Auto) 1.9 Basophils (%) (Auto) 0.7 Neutrophils # (Auto) 4.0 Lymphocytes # (Auto) 2.0 Monocytes # (Auto) 0.6 Eosinophils # (Auto) 0.1 Basophils # (Auto) 0.0 CBC Comment Sodium Level 142 Potassium Level 3.5 Chloride Level 110 H Carbon Dioxide Level 27.4 Anion Gap 5 L Blood Urea Nitrogen 17 Creatinine 0.96 Estimated GFR/1.73 m2 80 BUN/Creatinine Ratio 17.7 Glucose Level 127 H Lactic Acid Level 1.0 Calcium Level 8.7 Albumin 3.4 Procalcitonin < 0.05 Chemistry Comments Medical Decision Making Additional information obtaine: old records Findings Initially I was primarily concerned for your a developing infectious process in the left lower extremity based on erythema and swelling of the affected limb ultrasound was ordered both arterial and venous. infectious waste technician indicated there was no signs of enlarged lymph nodes and leg was only slightly hypoechoic Laboratory values were unremarkable including a negative white count negative lactic and a negative procalcitonin. Did give the patient Unasyn while in the ED and I am going to discharge him with Keflex as MRSA is likely not the infectious agent if there is developing infection. I reiterated with the patie nt that he needs to return to the ED immediately if his symptoms worsen General Diff Dx:Considerations: Unlikely: Abrasion, Contusion, Fracture, Hematoma, Laceration, Malunion, Neurovascular injury, Open fracture, Sprain, Ulcer, Other Knee Diff Dx:Considerations: Unlikely: Abrasion, Arthritis, Contusion, DJD, Fracture-femur, Fracture-fibula, Fracture-patella, Fracture-tibia, Gout, Hematoma, Laceration, Meniscus injury, Neurovascular injury, Open fracture, Rheumatoid arthritis, Septic, Sprain, Sprain-MCL, Sprain-LCL, Sprain-ACL, Sprain-PCL, Other Ankle Diff Dx:Considerations: Unlikely: Abrasion, Arthritis, Contusion, DJD, Fracture-metatarsal, Fracture-fibula, Fracture-tarsal, Fracture-tibia, Gout, Hematoma, Laceration, Malunion, Neurovascular injury, Nonunion, Open fracture, Osteomyelitis, Rheumatoid arthritis, Sprain, Septic, Ulcer, Other Foot Diff Dx:Considerations: Include: Abrasion, Arthritis, Cellulitis, Contusion, Dislocation, DJD, Fracture-metatarsal, Fracture-phalynx, Fracture- tarsal, Gout, Hematoma, Ingrown toenail, Laceration, Malunion, Neurovascular injury, Open fracture, Paronychia, Puncture, Rheumatoid, Sprain, Septic, Subungual hematoma, Ulcer, Other Toe Diff Dx:Considerations: Unlikely: Abrasion, Cellulitis, Contusion, Dislocation, Felon, Fracture, Hematoma, Laceration, Neurovascular injury, Open fracture, Paronychia, Subungual hematoma, Other Departure Disposition: 01 HOME / SELF CARE / HOMELESS Impression: Primary Impression: Foot pain Additional Impression: Cellulitis Condition: Stable Discharge Instructions: Cellulitis Additional Instructions: Gretel's return to the ED if your symptoms persist or worsen or if you develop a fever Referrals: NO PRIMARY CARE PROVIDER (PCP) Prescriptions Cephalexin*Monohydrate* (Keflex*) 500 Mg Capsule 1 CAP PO QID, #40 CAP Prov: HILDA DELCID NP 10/30/25 Education Educated: Patient Educated regarding: diagnosis Signature Scribe Signature: r Attestation: Scribed for Hilda Delcid Np by Hilda Park NP . 10/30/25 14:27 HILDA DELCID NP Oct 30, 2025 14:27
[2025-10-30 14:44] LABS: MEAN PLATELET VOLUME 8.5 FL (7.4-10.4); RED CELL DISTRIBUTION WIDTH 12.9 % (11.5-14.5)
[2025-10-30 14:52] LABS: CREATININE 0.96 MG/DL (0.60-1.10); TOTAL CARBON DIOXIDE 27.4 MMOL/L (24-32); eCRCL 77 ML/MIN; eGFR 80 ML/MIN
[2025-10-30] MEDS: ampicill/sulbac 1.5gm/NS 100ml 100 ML IV ONE (16:20)
[2025-10-30] MEDS ORDERED: CEPH-585 PO (16:22)
[2025-10-30 16:27] VITALS: TEMP 98.1
[2025-10-30 16:33] LABS: LEUKOCYTE ESTERASE ,URINE NEGATIVE (Neg); NITRITES, URINE NEGATIVE (Neg); OCCULT BLOOD,URINE NEGATIVE (Neg)
[2025-10-30 16:38] LABS: UA COLLECTION TYPE VOIDED
--- NOTE | 2025-10-30 16:40 | VASCULAR REPORT ---
Left lower extremity venous duplex Clinical History: Pain, swelling left lower extremity Comparison: None Technique: Duplex Doppler evaluation of the deep venous systems of left lower extremities from the common femoral veins to the popliteal veins including color Doppler and spectral/pulsed waveform analysis was performed. Findings: LEFT SIDE: The common femoral vein demonstrates appropriate compressibility and waveform variability. There is compressibility/patency of the great saphenous vein at the proximal thigh. The femoral vein demonstrates appropriate compressibility and waveform variability. The deep femoral vein demonstrates appropriate compressibility and waveform variability. The popliteal vein demonstrates appropriate compressibility and waveform variability. There is normal compressibility at the tibioperoneal trunk. Impression: No left femoropopliteal venous thrombosis.
--- NOTE | 2025-10-30 16:47 | VASCULAR REPORT ---
Left Lower Extremity Arterial Duplex Clinical History: Pain, diminished pulses Comparison: None Technique: Duplex Doppler evaluation including color Doppler and spectral/pulsed waveform analysis of the lower extremity arteries was performed. Findings: RIGHT: Peak systolic velocities are as follows: REGISTRATION SPECIALIST 118 cm/s Deep femoral 113 cm/s SFA proximal 138 cm/s SFA mid-portion 111 cm/s SFA distal 137 cm/s Popliteal 85 cm/s proximally and 194 cm per 2nd distally Posterior tibial 67 cm/s Anterior tibial 106 cm/s Peroneal 64 cm/s Dorsalis pedis 106 cm/s The waveforms are triphasic in the common femoral, deep femoral, superficial femoral, and popliteal arteries. The waveforms are biphasic in the posterior tibial, anterior tibial, and peroneal arteries. There is slight dampening of the waveform and diminished velocity between the distal superficial femoral artery and popliteal artery Moderate stenoses noted in the left popliteal artery. Unable to obtain NISH due to pain IMPRESSION: Moderate stenoses in the distal left superficial femoral artery and popliteal artery REFERENCE VALUES, [facility] ([facility]) vascular Imaging Lab Criteria: Peak systolic velocity ranges (in cm/sec) are as follows: <150 cm/s - <20 % stenosis 150-200 cm/s - 20-49% stenosis 200-300 cm/s - 50-75% stenosis >300 cm/s -> 75% stenosis
[2025-10-30 17:39] VITALS: BP 134/89; PULSE 74; RESP 16; O2SAT 99
== END 2025-10-30 17:42 | disposition home or self-care (01) ==
LOC: ER 13:47
DX: L03.116 Cellulitis of left lower limb (principal); G89.29 Other chronic pain; I10 Essential (primary) hypertension; I25.10 Atherosclerotic heart disease of native coronary artery without angina pectoris; I25.2 Old myocardial infarction; K21.9 Gastro-esophageal reflux disease without esophagitis; F12.90 Cannabis use, unspecified, uncomplicated; Z86.19 Personal history of other infectious and parasitic diseases; Z88.5 Allergy status to narcotic agent; Z87.442 Personal history of urinary calculi; Z79.82 Long term (current) use of aspirin; Z79.899 Other long term (current) drug therapy; Z98.890 Other specified postprocedural states; Z59.00 Homelessness unspecified
CPT/HCPCS: 36415; 80048; 81003; 83605; 84145; 85025; 87040; 93926; 93971; 96365; 99285; J0295

== ENCOUNTER 2025-11-28 04:17 | Emergency (ER) | payer MEDICAID ==
[~2025-11-28] VITALS: Ht 170.2 cm; Wt 78.6 kg
[~2025-11-28 04:17] MED LIST changes: +CEPH-585 PO
--- NOTE | 2025-11-28 06:23 | Physician Documentation ---
History of Present Illness ~ Chief Complaint: Abscess Stated Complaint: SPIDER BITE LEFT ARM Time Seen by MD: 06:10 OK to notify your PCP?: Yes Primary Medical Doctor: JOHANNA Source: patient, RN/, RN notes reviewed, old records Mode of Arrival: POV Exam Limitations: no limitations HPI Patient is a 60-year-old male with recent cellulitis of the lower extremities presenting to the ED for evaluation of developing left arm abscesses for the past four days. Patient reports that he first noticed one large abscess on his LUE about four days ago, but yesterday he noticed a few more popping up on. He describes them as erythematous and painful to the touch. He does not have pain while at rest. He normally sleeps on his back or the left side of his body, but has only been able to sleep on his back and due to the pain. Patient reports that he usually takes baths in the bathtub and fills it up every time. He denies any chills, fevers or shortness of breath. He recently finished an antibiotic course for his lower extremity cellulitis. Patient is an every day smoker. Patient denies any other associated symptoms at this time. Patient denies any other alleviating or exacerbating factors. Tetanus Within 5 Years: Yes Medication Reconciliation Allergies: Coded Allergies: codeine (Verified Adverse Reaction, Intermediate, GI, 09/23/25) Scheduled Aspirin (Aspirin EC), 1 TAB PO DAILY, (Reported) Cephalexin*Monohydrate* (Keflex*), 1 CAP PO QID Doxycycline Hyclate (Doxycycline Hyclate), 1 CAP PO Q12H Gabapentin (Neurontin), 1,500 MG PO HS, (Reported) Losartan Potassium (Losartan Potassium), 50 MG PO DAILY Scheduled PRN Diphenhydramine Hcl (Benadryl), 50 MG PO DAILY PRN for allergies Epinephrine (Epipen Jr 2-Edmundo), 1 SYR IM ONCE PRN for anaphylaxis Past Medical History Past Medical History: Arrhythmia, Coronary Artery Disease, Hypertension, Myocardial Infarction, GERD, Hepatitis C, Kidney Stones, Chronic Back Pain Past Surgical History: orthopedic surgeries Alcohol Use: None Drug Use: marijuana Lives In: Homeless Occupation: employed Review of Systems All Other Systems at this time: Reviewed and Negative ROS Left arm abscess as well as other positive symptoms noted above in the HPI, otherwise all other systems are reviewed and negative. Physical Exam Vital Signs: RN Vital Signs have been reviewed: Yes, Temperature: 98.2, Heart Rate: 91, Respiratory Rate: 18, BP: 143/79, Pulse Oximetry: 96, Weight: 78.640 Oxygen Flow Rate: 0 Physical Exam General: The patient is well developed, well nourished, nontoxic appearing and is in no acute distress. Skin: [place], warm and dry with no rashes. HEENT: Head was normocephalic and atraumatic. Eyes - pupils equal, round, reactive to light and accommodation. Extraocular movements were intact. Conjunctivae were nonicteric. The mouth and oropharynx were clear with moist mucous membranes. There were no pharyngeal exudates or erythema. Neck: Supple and nontender. There was no jugular venous distention, lymphadenopathy, thyromegaly or masses. Chest: Clear to auscultation bilaterally without wheezes, rales or rhonchi. No accessory muscle use. No dullness to percussion. Heart: 3/6 systolic cardiac murmur, Palpation of the chest wall was normal. No rubs or thrills. Abdomen: Soft, nontender and nondistended. Positive bowel sounds. No guarding or rebound. Extremities: The patient moves all extremities. Pulses were equal and symmetric. Skin: Patient's left forearm infected with two erythematous follicles on the left upper extremity Psychologic: The patient was oriented to person, place and time. The patient demonstrated appropriate judgement and insight. Procedures I & D Procedure : Site: LUE Anesthesia: none Blade Size: 11 Tolerated Procedure Well?: yes, no complications Procedure Note Knicked a total of three follicles with an 11 blade. Patient tolerated procedure well. No complications. Progress Results/Orders Reviewed/noted all lab results: Yes Results/Orders Completed Orders - MARTY PICKENS MD Doxycycline 100mg Capsule (Vibramycin 10 (11/28/25 06:31) Medications Received in ER Medications (Trade) Dose Ordered Sig/Kya Route PRN Reason Start Time Stop Time Status Last Admin Dose Admin (VIBRAMYCIN 100mg capsule) 100 mg ONCE STAT PO 11/28/25 06:31 11/28/25 06:34 DC 11/28/25 06:47 100 MG Vital Signs 11/28/25 11/28/25 04:24 07:24 Temp 98.2 98.0 Pulse 91 82 Resp 18 16 B/P (MAP) 143/79 132/71 Pulse Ox 96 95 O2 Flow Rate 0 Re-Evaluation Re-Evaluation : Re-Evaluation: Improved Progress Patient given antibiotics wounds were drained in that the follicles were neck and pustules were removed. X3. Antibiotics discharged home. Medical Decision Making Additional information obtaine: old records Findings Folliculitis treated discharged some cellulitis around one of the lesions Differential Dx:Considerations: Include: Abscess, Bacteremia, Cellulitis, Erysipelas, Felon, Gas gangrene, Hidrademitis suppurativa, Impetigo, Lymph angitis, Osteromyelitis, Paronychia, Septicemia, Other Departure Time of Disposition: 07:25 Disposition: 01 HOME / SELF CARE / HOMELESS Impression: Primary Impression: Bacterial folliculitis Additional Impression: Early abscess Condition: Stable Discharge Instructions: Abscess, Care After, Folliculitis Additional Instructions: Please take antibiotics as prescribed. As discussed please thoroughly cleaned your bath tub and bed sheets. Follow up with your primary doctor regarding today's visit. Return to the ED for any new or worsening symptoms. Referrals: NO PRIMARY CARE PROVIDER (PCP) Prescriptions Doxycycline Hyclate (Doxycycline Hyclate) 100 Mg Capsule 1 CAP PO Q12H for 7 Days, #14 CAP Prov: MARTY PICKENS MD 11/28/25 Education Educated: Patient Educated regarding: diagnosis, treatment Signature Scribe Signature: Scribed for Marty Pickens MD by Collin Carvalho . 11/28/25 06:31 Attestation: The note accurately reflects work and decisions made by me.Marty Pickens MD 11/28/25 06:23 MARTY PICKENS MD Nov 28, 2025 06:23 COLLIN MCDONNELL Nov 28, 2025 06:38
[2025-11-28] MEDS: DOXYCYCLINE 100MG CAPSULE PO STA (06:47)
[2025-11-28 07:24] VITALS: BP 132/71; PULSE 82; RESP 16; TEMP 98; O2SAT 95
[2025-11-28] MEDS ORDERED: DOXY-1 PO (07:25)
== END 2025-11-28 07:25 | disposition home or self-care (01) ==
LOC: ER 04:18
DX: L02.414 Cutaneous abscess of left upper limb (principal); L73.8 Other specified follicular disorders; I25.10 Atherosclerotic heart disease of native coronary artery without angina pectoris; I10 Essential (primary) hypertension; G89.29 Other chronic pain; F12.90 Cannabis use, unspecified, uncomplicated; K21.9 Gastro-esophageal reflux disease without esophagitis; F17.200 Nicotine dependence, unspecified, uncomplicated; I25.2 Old myocardial infarction; Z86.19 Personal history of other infectious and parasitic diseases; Z87.442 Personal history of urinary calculi; Z88.5 Allergy status to narcotic agent; Z79.82 Long term (current) use of aspirin; Z79.899 Other long term (current) drug therapy; Z59.00 Homelessness unspecified; Z98.890 Other specified postprocedural states
CPT/HCPCS: 10061; 99283